=== PATIENT | male | born 1975 | race Two or more races ===

== ENCOUNTER 2018-05-22 12:49 | Emergency (ER) | payer MEDICAID, OTHER ==
[~2018-05-22] VITALS: Ht 170.2 cm; Wt 86.2 kg
[~2018-05-22 12:49] MED LIST: ADAL40KI2 SC; ALPR0.254 PO; DOCU-94 PO; GABA300C10 PO; HYDR-2601 PO; HYOS0.1250 PO; LEFL20TA PO; LORA-622 PO; MELO1TAB56 PO; MET50T PO; METH-532 PO; OMEP20CA74 PO; ONDA4TAB5 PO; PLAQUENIL PO; PROM25TA5 PO; RANI150C11 PO; SIME80CH6 PO
[2018-05-22] MEDS ORDERED: LORazepam 0.5 MG TAB PO ONE (13:00)
[2018-05-22 13:22] VITALS: BP 141/93
== END 2018-05-22 13:20 | disposition left against medical advice (07) ==
LOC: ER 12:49
DX: F41.9 Anxiety disorder, unspecified (principal); I10 Essential (primary) hypertension; K21.9 Gastro-esophageal reflux disease without esophagitis; Z53.29 Procedure and treatment not carried out because of patient's decision for other reasons
CPT/HCPCS: 71045

== ENCOUNTER 2018-10-26 17:05 | Emergency (ER) | payer MEDICAID ==
[~2018-10-26] VITALS: Ht 170.2 cm; Wt 86.2 kg
[2018-10-26 17:45] LABS: Basophils # (auto) 0 uL; Basophils % (auto) 0.5 % (0.0-2.0); Eosinophils # (auto) 0 uL; Eosinophils % (auto) 0.5 % (0.0-7.0); Hematocrit 48.3 % (41.0-53.0); Hemoglobin 16.3 g/dL (13.5-17.5); Lymphocytes % (auto) 23.7 % (10.0-50.0); Mean Corpuscular Hemoglobin 31.9 pg (28.0-32.0); Mean Corpuscular Hgb Conc. 33.8 g/dL (32.0-36.0); Mean Corpuscular Volume 94.5 fL (80.0-100.0); Monocytes # (auto) 0.4 uL; Monocytes % (auto) 4.9 % (0.0-12.0); Neutrophils # (auto) 6.1 uL; Neutrophils % (auto) 70.4 % (37.0-80.0); Nucleated Red Blood Cells % 0.1 %; Platelet Count (auto) 272 10^3/uL (140-450); Red Blood Cells 5.11 10^6/uL (4.5-5.90); Red Cell Distribution Width 13.7 % (11.8-14.3); White Blood Cell 8.6 10^3/uL (4.4-10.8)
[2018-10-26 17:53] LABS: Albumin 4.2 g/dL (3.4-5.0); Calcium 8.9 mg/dL (8.5-10.1); Potassium 3.8 mmol/L (3.5-5.1)
[2018-10-26 17:56] LABS: BUN/Creatinine Ratio 5.9; Bilirubin, Total 0.6 mg/dL (0.2-1.0); Total Protein 8.3 g/dL (6.4-8.2)
[2018-10-26 20:06] LABS: Urine Bacteria NONE SEEN /hpf (None Seen); Urine Blood Negative /uL (Negative); Urine Mucus FEW (None Seen); Urine Specific Gravity 1.017 (1.001-1.035); Urine WBC <1 /hpf (0 - 3)
[2018-10-26 20:07] LABS: Alcohol, Urine < 3.0 mg/dL (0-5); Amphetamine Screen, Urine NEGATIVE (NEGATIVE); Barbiturate Scree,Urine NEGATIVE (NEGATIVE); Benzodiazephine Screen, Urine NEGATIVE (NEGATIVE); Cannabinoid Screen, Urine POSITIVE (NEGATIVE); Cocaine Screen, Urine NEGATIVE (NEGATIVE); Opiate Scree,Urine POSITIVE (NEGATIVE); Phencyclidine Screen, Urine NEGATIVE (NEGATIVE)
[2018-10-26 22:00] VITALS: BP 128/104
[2018-10-26] MEDS ORDERED: KETOROLAC TROMETH 60MG/2ML VIAL IM ONE (22:30)
== END 2018-10-26 22:30 | disposition home or self-care (01) ==
LOC: ER 17:05
DX: K29.00 Acute gastritis without bleeding (principal); F12.10 Cannabis abuse, uncomplicated; K21.9 Gastro-esophageal reflux disease without esophagitis; I10 Essential (primary) hypertension; F41.9 Anxiety disorder, unspecified; F32.9 Major depressive disorder, single episode, unspecified; M19.90 Unspecified osteoarthritis, unspecified site; Z86.39 Personal history of other endocrine, nutritional and metabolic disease; Z88.1 Allergy status to other antibiotic agents
CPT/HCPCS: 36415; 74176; 80053; 80307; 81001; 82150; 83690; 85025; 96372; 99284; J1885

== ENCOUNTER 2019-02-23 09:34 | Emergency (ER) | payer MEDICAID ==
[~2019-02-23] VITALS: Ht 170.2 cm; Wt 86.2 kg
[2019-02-23] MEDS ORDERED: ONDANSETRON HCL 4 MG/2 ML VIAL IV ONE ×2 (11:00→14:15)
[2019-02-23] MEDS ORDERED: MORPHINE SULF INJ 2 MG/ML SYRINGE 1ML IV ONE (11:00)
[2019-02-23 11:03] LABS: Basophils # (auto) 0 uL; Basophils % (auto) 0.3 % (0.0-2.0); Eosinophils # (auto) 0 uL; Hematocrit 47.9 % (41.0-53.0); Hemoglobin 16.3 g/dL (13.5-17.5); Lymphocytes # (auto) 2.6 uL; Lymphocytes % (auto) 24.1 % (10.0-50.0); Mean Corpuscular Hemoglobin 31.4 pg (28.0-32.0); Mean Corpuscular Hgb Conc. 34.1 g/dL (32.0-36.0); Mean Corpuscular Volume 92.2 fL (80.0-100.0); Monocytes # (auto) 0.8 uL; Monocytes % (auto) 7.8 % (0.0-12.0); Neutrophils # (auto) 7.2 uL; Neutrophils % (auto) 67.8 % (37.0-80.0); Nucleated Red Blood Cells % 0.1 %; Platelet Count (auto) 353 10^3/uL (140-450); Red Blood Cells 5.19 10^6/uL (4.5-5.90); Red Cell Distribution Width 12.9 % (11.8-14.3); White Blood Cell 10.6 10^3/uL (4.4-10.8)
[2019-02-23 11:14] LABS: INR 0.91 (0.9-1.15); Partial Thromboplastin Time 23.8 sec (23.64-32.05)
[2019-02-23 11:16] LABS: Albumin 4.7 g/dL (3.4-5.0); BUN/Creatinine Ratio 10.1; Calcium 9.7 mg/dL (8.5-10.1); Potassium 3.7 mmol/L (3.5-5.1)
[2019-02-23 11:18] LABS: Bilirubin, Total 0.6 mg/dL (0.2-1.0); Total Protein 9.5 g/dL (6.4-8.2)
[2019-02-23] MEDS ORDERED: MORPHINE SULFATE 4 MG/ML SYR/VIAL IV ONE (14:15)
[2019-02-23 14:58] VITALS: BP 136/82
[2019-02-25] MEDS ORDERED: BUSP10TA90 PO (10:23)
[2019-02-25] MEDS ORDERED: PERCOT PO (10:23)
[2019-02-25] MEDS ORDERED: DICY20TA66 PO (10:23)
[2019-02-25] MEDS ORDERED: DOCU-55 PO (10:23)
[2019-02-25] MEDS ORDERED: AMIT PO (10:23)
[2019-02-25] MEDS ORDERED: LISI10TA6 PO (10:23)
[2019-02-25] MEDS ORDERED: LEVO50TA7 PO (10:23)
[2019-02-25] MEDS ORDERED: SUCR1TAB PO (10:23)
[2019-02-25] MEDS ORDERED: BREX1TAB4 PO (10:23)
[2019-02-25] MEDS ORDERED: FLUT0.05 NAS (10:23)
[2019-02-25] MEDS ORDERED: MORP-110 PO (10:23)
[2019-02-25] MEDS ORDERED: LEFL20TA PO (10:23)
[2019-02-25] MEDS ORDERED: SULF500T8 PO (10:23)
[2019-02-25] MEDS ORDERED: PAR20T PO (10:23)
[2019-02-25] MEDS ORDERED: TOFA5TAB OR (10:23)
[2019-02-25] MEDS ORDERED: BUPR100T14 PO (10:23)
[2019-02-25] MEDS ORDERED: IBUP800T24 PO (10:23)
[2019-02-25] MEDS ORDERED: DICL1GEL26 TOP (10:23)
[2019-02-26] MEDS ORDERED: PANT40T PO (12:45)
[2019-02-26] MEDS ORDERED: SUCR1TAB38 PO (12:47)
== END 2019-02-23 15:41 | disposition home or self-care (01) ==
LOC: ER 09:50
DX: R10.32 Left lower quadrant pain (principal); M19.90 Unspecified osteoarthritis, unspecified site; K21.9 Gastro-esophageal reflux disease without esophagitis; E07.9 Disorder of thyroid, unspecified; I10 Essential (primary) hypertension; F12.90 Cannabis use, unspecified, uncomplicated; Z88.1 Allergy status to other antibiotic agents; Z79.899 Other long term (current) drug therapy
CPT/HCPCS: 36415; 74176; 80053; 82150; 83605; 83690; 85025; 85610; 85730; 87040; 96374; 96375; 96376; 99284; J2270; J2405

== ENCOUNTER 2019-02-25 05:21 | Inpatient (IN) | payer MEDICAID | END 2019-02-27 14:55 | disposition home or self-care (01) | LOC: ER 05:21 → TELE-CENTR 10:17 | DX: K29.70 Gastritis, unspecified, without bleeding (principal); F32.9 Major depressive disorder, single episode, unspecified; M06.9 Rheumatoid arthritis, unspecified; K58.9 Irritable bowel syndrome, unspecified; K29.80 Duodenitis without bleeding ==

== ENCOUNTER 2023-10-18 07:50 | Emergency (ER) | payer MEDICAID ==
[~2023-10-18] VITALS: Ht 170.2 cm; Wt 67.8 kg
[~2023-10-18 07:50] MED LIST changes: -ADAL40KI2 SC; -ALPR0.254 PO; +AMIT10TA10 PO; +BREX1TAB4 PO; +BUPR-346 PO; +BUSP10TA90 PO; +DICL1GEL26 TOP; +DICY20TA PO; +DOCU-55 PO; +FLUT0.05 NAS; +GABA-1250 PO; -GABA300C10 PO; -HYDR-2601 PO; +IBUP-1456 PO; +LEVO50TA7 PO; +LISI10TA34 PO; -MELO1TAB56 PO; +MORP-110 PO; +ONDA-144 PO; -ONDA4TAB5 PO; +PANT40T PO; +PAR20T PO; +PERCOT PO; -PROM25TA5 PO; -RANI150C11 PO; -SIME80CH6 PO; +SUCR1TAB PO; +SUCR1TAB22 PO; +SULF500T57 PO; +TOFA5TAB OR
[2023-10-18 08:27] VITALS: BP 131/85; PULSE 86; RESP 18; TEMP 98.5; O2SAT 98
[2023-10-18] MEDS ORDERED: KETOROLAC TROMETH 60MG/2ML VIAL IM ONE (08:45)
[2023-10-18] MEDS ORDERED: METH-1182 PO (09:18)
[2023-10-19] MEDS ORDERED: CYCL-839 PO (18:15)
== END 2023-10-18 09:25 | disposition home or self-care (01) ==
LOC: ER 07:50
DX: S29.011A Strain of muscle and tendon of front wall of thorax, initial encounter (principal); K21.9 Gastro-esophageal reflux disease without esophagitis; I10 Essential (primary) hypertension; F12.10 Cannabis abuse, uncomplicated; Z88.1 Allergy status to other antibiotic agents; V43.52XA Car driver injured in collision with other type car in traffic accident, initial encounter; Y93.89 Activity, other specified; Y92.488 Other paved roadways as the place of occurrence of the external cause; Y99.8 Other external cause status
CPT/HCPCS: 71101; 96372; 99283; J1885

== ENCOUNTER 2023-10-19 14:58 | Emergency (ER) | payer MEDICAID ==
[~2023-10-19] VITALS: Ht 170.2 cm; Wt 67.2 kg
[~2023-10-19 14:58] MED LIST changes: +METH-1182 PO
[2023-10-19] MEDS ORDERED: KETOROLAC TROMETH 30 MG/ML 1ML VIAL IM ONE (16:45)
[2023-10-19 18:01] VITALS: BP 128/73; PULSE 80; RESP 17; TEMP 99.3; O2SAT 96
[2023-10-19] MEDS ORDERED: HYDROcodone-ACET 5/325MG TAB PO ONE (18:15)
[2023-10-19] MEDS ORDERED: CYCL-839 PO (18:15)
== END 2023-10-19 18:28 | disposition home or self-care (01) ==
LOC: ER 14:58
DX: R07.81 Pleurodynia (principal); I10 Essential (primary) hypertension; E03.9 Hypothyroidism, unspecified; E78.5 Hyperlipidemia, unspecified; K21.9 Gastro-esophageal reflux disease without esophagitis; Z79.899 Other long term (current) drug therapy; Z88.1 Allergy status to other antibiotic agents; V89.2XXA Person injured in unspecified motor-vehicle accident, traffic, initial encounter; Y93.89 Activity, other specified; Y92.410 Unspecified street and highway as the place of occurrence of the external cause; Y99.8 Other external cause status
CPT/HCPCS: 71250; 74176; 96372; 99285; J1885

== ENCOUNTER 2024-01-17 11:18 | Emergency (ER) | payer MEDICAID ==
[~2024-01-17] VITALS: Ht 170.2 cm; Wt 66.8 kg
[~2024-01-17 11:18] MED LIST changes: +AMIT-400 PO; -AMIT10TA10 PO; +CYCL-839 PO; -SUCR1TAB22 PO; +SUCR1TAB31 PO
[2024-01-17 12:28] VITALS: BP 108/74; PULSE 81; RESP 16; TEMP 97.8; O2SAT 96
[2024-01-17] MEDS: HYDROcodone-ACET 5/325MG TAB PO ONE (12:56)
[2024-01-17] MEDS: KETOROLAC TROMETH 60MG/2ML VIAL IM ONE (12:56)
== END 2024-01-17 13:02 | disposition home or self-care (01) ==
LOC: ER 11:18
DX: S22.32XA Fracture of one rib, left side, initial encounter for closed fracture (principal); K21.9 Gastro-esophageal reflux disease without esophagitis; I10 Essential (primary) hypertension; F12.10 Cannabis abuse, uncomplicated; Z88.1 Allergy status to other antibiotic agents; W18.09XA Striking against other object with subsequent fall, initial encounter; Y93.89 Activity, other specified; Y92.89 Other specified places as the place of occurrence of the external cause; Y99.8 Other external cause status
CPT/HCPCS: 71101; 96372; 99283; J1885

== ENCOUNTER 2024-03-30 08:28 | Emergency (ER) | payer MEDICAID ==
[~2024-03-30] VITALS: Ht 175.3 cm; Wt 63.4 kg
[2024-03-30 09:18] VITALS: BP 117/83; PULSE 97; RESP 17; TEMP 98; O2SAT 95
[2024-03-30] MEDS: KETOROLAC TROMETH 30 MG/ML 1ML VIAL IM ONE (10:04)
[2024-03-30] MEDS ORDERED: DICL1GEL59 EX (10:28)
== END 2024-03-30 11:04 | disposition home or self-care (01) ==
LOC: ER 08:28
DX: S29.011A Strain of muscle and tendon of front wall of thorax, initial encounter (principal); F41.9 Anxiety disorder, unspecified; M19.90 Unspecified osteoarthritis, unspecified site; F32.A Depression, unspecified; K21.9 Gastro-esophageal reflux disease without esophagitis; I10 Essential (primary) hypertension; E07.9 Disorder of thyroid, unspecified; F12.10 Cannabis abuse, uncomplicated; Z79.899 Other long term (current) drug therapy; Z88.1 Allergy status to other antibiotic agents; Z88.8 Allergy status to other drugs, medicaments and biological substances; X58.XXXA Exposure to other specified factors, initial encounter; Y93.89 Activity, other specified; Y92.89 Other specified places as the place of occurrence of the external cause; Y99.8 Other external cause status
CPT/HCPCS: 71046; 96372; 99283; J1885

== ENCOUNTER 2025-04-07 18:28 | Emergency (ER) | payer MEDICAID ==
[~2025-04-07] VITALS: Ht 170.2 cm; Wt 67.1 kg
[~2025-04-07 18:28] MED LIST changes: +DICL1GEL59 EX
[2025-04-07] MEDS ORDERED: LIDOCAINE HCL 1 % PF INJ 2ML AMP IJ ONE (19:00)
--- NOTE | 2025-04-07 19:21 | ED.PDOC ---
Back pain HPI HPI Comments 49y M who presents to the ED for chief complaint of upper and point specific back pain. Pt states he has history of chronic back pain from history of rheumatoid arthritis. Pt states has been taking prescribed pain medications and states they have not been helping. 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 Pt states he came to the ED, now as he would like pain shot in his upper back to help control his symptoms. Pt otherwise denies any other symptoms. Chief Complaint: Back Pain Time Seen by MD: 18:45 Primary Care Provider: NAILA Reviewed Notes: Nurses Notes, Medications, Allergies Allergies: Coded Allergies: Clindamycin (Verified Allergy, Unknown, 01/31/16) Cortisone (Verified Allergy, Unknown, 03/30/24) Home Meds Active Scripts Diclofenac Sodium (Topical) (Voltaren Arthritis Pain) 1 % Gel, 1-2 GRAMS EX QIDPRN for 10 Days, #60 GRAMS 0 Refills Prov:PAMELLA HACKETT WATER SOFTENER SERVICER AND INSTALLER 03/30/24 Cyclobenzaprine Hcl (Cyclobenzaprine Hcl) 10 Mg Tab, 10 MG PO TID, #30 TAB Prov:ALVAREZ CASTRO PAC 10/19/23 Methocarbamol (Methocarbamol) 750 Mg Tab, 750 MG PO BID, #20 TAB Prov:OUMAR JACOB PA 10/18/23 Sucralfate (CARAFATE) 1 Gm Tab, 1 GM PO QIDACHS, #120 TAB Prov:REBECCA TATUM MD 02/26/19 Pantoprazole Sodium Sesquihydr (Pantoprazole Sodium) 40 Mg Tab, 40 MG PO BID, #60 TAB Prov:REBECCA TATUM MD 02/26/19 Hyoscyamine Sulfate (Levsin) 0.125 Mg Tab, 0.25 MG PO Q4HP PRN, #30 TAB Prov:MILI CASTRO MD 03/14/16 Reported Medications Levothyroxine Sodium (Levothyroxine Sodium) 50 Mcg Tab, 50 MCG PO QAM for 30 Days, MCG 02/25/19 Leflunomide (Arava) 20 Mg Tab, 1 TAB PO DAILY, #30 TAB 02/25/19 Ibuprofen (Ibuprofen) 800 Mg Tab, 800 MG PO TID, MG 02/25/19 Fluticasone Propionate (Fluticasone Propionate) 0.05 % Cre, 50 MCG RACHAEL BID for 30 Days, MCG 02/25/19 Docusate Sodium (Docusil) 100 Mg Cap, 100 MG PO BID, CAP 02/25/19 Dicyclomine Hcl (Dicyclomine Hcl) 20 Mg Tab, 20 MG PO BID for 30 Days, MG 02/25/19 Diclofenac Sodium (Topical) (Voltaren) 1 % Gel, 1 GRAMS TOP BID, #100 GRAMS 2 Refills 02/25/19 Buspirone Hcl (Buspirone Hcl) 10 Mg Tab, 10 MG PO Q12HR for 30 Days, MG 02/25/19 Bupropion Hcl (Bupropion Hcl) 100 Mg Tab, 150 MG PO BID for 30 Days, MG 02/25/19 Amitriptyline Hcl (ELAVIL) 10 Mg Tb, 50 MG PO BID 02/25/19 Lisinopril (Lisinopril) 10 Mg Tab, 10 MG PO DAILY for 30 Days, MG 02/25/19 Paroxetine (PAXIL TABLET) 20 Mg Tb, 2 TAB PO DAILY, #30 TAB 5 Refills 02/25/19 Sulfasalazine (Sulfasalazine) 500 Mg Tab, 500 MG PO BID, MG 02/25/19 Sucralfate (Sucralfate) 1 Gm Tab, 1 GM PO BID, GM 02/25/19 Brexpiprazole (Rexulti) 2 Mg Tab, 2 MG PO DAILY, TAB 02/25/19 Tofacitinib Citrate (XELJANZ) 5 Mg Tab, 5 MG OR DAILY, TAB 02/25/19 Oxycodone W/ Acetaminophen (Percocet 5/325MG) 1 Tab Tb, 1 TAB PO TID, #90 TAB 02/25/19 Morphine Sulfate (Ms Contin) 30 Mg Tab, 1 TAB PO BID, #60 TAB 02/25/19 Omeprazole (PRILOSEC) 20 Mg Cap, 1 CAP PO DAILY, #90 CAP 1 Refill 03/13/16 Loratadine (Claritin) 10 Mg Tab, 1 TAB PO DAILY, #30 TAB 5 Refills 03/13/16 Metoprolol Tartrate (LOPRESSOR TABLET) 50 Mg Tb, 25 TAB PO BID, #60 TAB 5 Refills 03/13/16 Methocarbamol (Robaxin-750) 750 Mg Tab, 1 TAB PO BID, #60 TAB 03/13/16 Docusate Sodium (Colace) 100 Mg Cap, 1 CAP PO BID, #30 CAP 03/13/16 Leflunomide (Arava) 20 Mg Tab, 1 TAB PO DAILY, #30 TAB 03/13/16 Ondansetron (Zofran) 4 Mg Tab, 1 TAB PO Q6HR, #20 TAB 03/13/16 Gabapentin (Gabapentin) 300 Mg Cap, 1 CAP PO TID, #90 CAP 5 Refills 03/13/16 [Plaquenil] No Conflict Check, 200 MG PO BID 08/31/12 Information Source: Patient Mode of Arrival: Ambulatory Timing: Days Duration: Since onset Location of Back pain: (R) Upper back Severity: Moderate Prehospital treatment: None Quality: Aching, Cramping Onset: Spontaneous History of: Chronic Back Pain, Other (Rheumatoid arthritis) Past Medical History PAST MEDICAL HISTORY: Anxiety, Arthritis, Depression, GERD, HTN, Thyroid Surgical History: Denies all surgeries Family History Family History: Reviewed,noncontributory to illness, No family hx of HTN Social History Smoker: Non-Smoker Alcohol: Sober Drugs: Marijuana Lives In: Home Constitutional: denies: chills, diaphoresis, fatigue, fever, malaise, sweats, weakness, others EENTM: denies: blurred vision, double vision, ear bleeding, ear discharge, ear drainage, ear pain, ear ringing, eye pain, eye redness, hearing loss, mouth pain, mouth swelling, nasal discharge, nose bleeding, nose congestion, nose pain, photophobia, tearing, throat pain, throat swelling, voice changes, others Respiratory: denies: cough, hemoptysis, orthopnea, SOB at rest, shortness of breath, SOB with excertion, stridor, wheezing, others Cardiovascular: denies: chest pain, dizzy spells, diaphoresis, Dyspnea on exertion, edema, irregular heart beat, left arm pain, lightheadedness, palpitations, PND, syncope, others Gastrointestinal: denies: abdomen distended, abdominal pain, blood streaked bowels, constipated, diarrhea, dysphagia, difficulty swallowing, hematemesis, melena, nausea, poor appetite, poor fluid intake, rectal bleeding, rectal pain, vomiting, others Genitourinary: denies: burning, dysuria, flank pain, frequency, hematuria, incontinence, penile discharge, penile sore, pain, testicle pain, testicle swelling, urgency, others Neurological: denies: dizziness, fainting, headache, left sided numbness, left sided weakness, numbness, paresthesia, pre-existing deficit, right sided numbness, right sided weakness, seizure, speech problems, tingling, tremors, weakness, others Musculoskeletal: reports: back pain; denies: gout, joint pain, joint swelling, muscle pain, muscle stiffness, neck pain, others Integumetry: denies: bruises, change in color, change in hair/nails, dryness, laceration, lesions, lumps, rash, wounds, others Allergic/Immunocompromised: denies: Difficulty Healing, Frequent Infections, Hives, Itching, others Hematologic/Lymphatic: denies: anemia, blood clots, easy bleeding, easy bruising, swollen glands, others Endocrine: denies: excessive hunger, excessive sweating, excessive thirst, excessive urination, flushing, intolerance to cold, intolerance to heat, unexplained weight gain, unexplained weight loss, others Psychiatric: denies: anxiety, bipolar disorder, depression, hopeless, panic disorder, schizophrenia, sleepless, suicidal, others All Other Systems: Reviewed and Negative Physical Exam General Appearance: Moderate Distress (Moderate distress due to back pain concerns.), Normal HEENT: Normal ENT Inspection, Pharynx Normal, TMs Normal Neck: Full Range of Motion, Non-Tender, Normal, Normal Inspection Respiratory: Chest Non-Tender, Lungs Clear, No Accessory Muscle Use, No Respiratory Distress, Normal Breath Sounds Cardiovascular: No Edema, No JVD, No Murmur, No Gallop, Normal Peripheral Pulses, Regular Rate/Rhythm Breast Exam: Deferred Gastrointestinal: No Organomegaly, Non Tender, No Pulsatile Mass, Normal Bowel Sounds, Soft Genitalia: Deferred Pelvic: Deferred Rectal: Deferred Extremities: No calf tenderness, Normal capillary refill, Normal inspection, Normal range of motion, Non-tender, No pedal edema Musculoskeletal : Location: Right Extremity Location: Back (Patient has a relatively point specific area of concern on the medial aspect of the right scapula. No signs of trauma. Significant hypertonicity appreciated. No signs of infection.) Apperance: Normal Neurologic: Alert, No Motor Deficits, Normal Affect, Normal Mood, No Sensory Deficits Cerebellar Function: Normal Reflexes: Normal Skin: Dry, Normal Color, Warm Lymphatic: No Adenopathy Was a procedure done? Was a procedure done?: Yes Sedation Sedation?: No Other Procedure Notes 5 cc of 2% lidocaine with epinephrine was utilized for a trigger point injection of the rhomboid at the medial border aspect of the right scapula. Patient tolerated procedure well. Back Pain Differential Dx Differential Diagnosis: Musculoskeletal Pain X-Ray, Labs, Meds, VS Vital Signs Date Time Temp Pulse Resp B/P (MAP) Pulse Ox O2 Delivery O2 Flow Rate FiO2 04/07/25 18:56 98.0 77 16 118/73 (88) 97 98.0 Current Medications Medications (Trade) Dose Ordered Sig/Emilia Route Start Time Stop Time Status Last Admin Lidocaine/ Epinephrine (Lidocaine/ Epinephrine 2% Inj) 2 ml ONCE ONCE IJ 04/07/25 19:45 04/07/25 19:46 DC 04/07/25 19:37 X-Ray, Labs, Meds, VS Comment Patient was thankful for the injection and states he had good relief of symptoms quickly. Advised patient to maintain follow up with his primary care and pain management doctor for long-term pain medication needs. Time of 1ST Reevaluation: 20:27 Reevaluation 1ST: Improved Consultation: PCP, Other (Pain management) Patient Education/Counseling: Diagnosis, Treatment Family Education/Counseling: Diagnosis, Treatment, No Family Present SEPSIS Sepsis Screen Date sepsis recognized/suspect: Apr 07, 2025 Time Sepsis recognized/suspect: 1845 Recent Procedure: No On Antibiotic Therapy: No Respiratory Rate >20: No Heart Rate >90: No Temp<36 C (96.8 F) or >38.3 C: No SBP <90 or MAP <65 mmHG: No New Acute Mental Status Change: No Is the patient on CPAP, BIPAP,: No Vital Signs Date Time Temp Pulse Resp B/P (MAP) Pulse Ox O2 Delivery O2 Flow Rate FiO2 04/07/25 18:56 98.0 77 16 118/73 (88) 97 98.0 Medications Medications Dose Ordered Sig/Emilia Route Start Time Stop Time Status Last Admin Dose Admin Lidocaine/ Epinephrine 2 ml ONCE ONCE IJ 04/07/25 19:45 04/07/25 19:46 DC 04/07/25 19:37 Departure 1 Departure Time of Disposition: 20:27 Impression: Primary Impression: Musculoskeletal pain Disposition: 01 HOME / SELF CARE / HOMELESS Condition: Stable Additional Instructions: Advised patient to follow up with primary care provider and pain management as directed for long-term management of his global pain concerns. Discharged With: Self, Friend Critical Care Note Critical Care Time?: No Stability Stability form required: No Heart Score Heart Score: Heart Score Response (Comments) Value History N/A 0 EKG N/A 0 Age N/A 0 Risk Factors N/A 0 Troponin N/A 0 Total 0 I personally scribed for JACOBY ARCEO PAC ([email or web address]) on 04/07/25 at 19:21. Electronically submitted by Slick Bolton ([email or web address]). JACOBY ARCEO PAC Apr 07, 2025 19:21
[2025-04-07] MEDS: LIDOCAINE W/ EPINEPHRINE 2% INJ 20ML VIAL ONE ×2 (19:35→19:36)
[2025-04-07] MEDS: LIDOCAINE W/ EPINEPHRINE 2% INJ 20ML VIAL IJ ONE (19:37)
[2025-04-07 20:34] VITALS: BP 115/71; PULSE 82; RESP 16; TEMP 98.4; O2SAT 95
== END 2025-04-07 20:40 | disposition home or self-care (01) ==
LOC: ER 18:28
DX: M79.18 Myalgia, other site (principal); I10 Essential (primary) hypertension; F32.A Depression, unspecified; F41.9 Anxiety disorder, unspecified; M06.9 Rheumatoid arthritis, unspecified; Z79.622 Long term (current) use of Janus kinase inhibitor; Z79.69 Long term (current) use of other immunomodulators and immunosuppressants; Z79.899 Other long term (current) drug therapy; Z88.1 Allergy status to other antibiotic agents; Z88.8 Allergy status to other drugs, medicaments and biological substances
CPT/HCPCS: 20552

== ENCOUNTER 2025-05-28 10:49 | Emergency (ER) | payer MEDICAID ==
[~2025-05-28] VITALS: Ht 170.2 cm; Wt 66.3 kg
[2025-05-28 10:50] VITALS: TEMP 98.2
--- NOTE | 2025-05-28 12:57 | ED.PDOC ---
Musculoskeletal HPI Comments 49 y.o male with PMHx of rheumatid arthritis, presents to the ED for a chief complaint of pain to the left 4th finger s/p trauma. Patient reports accidently slamming the morton of his vehicle onto his finger 2 days ago. Patient reports pain radiates up to his mid forearm and states he is unable to bend the finger tip portion. Patient denies any numbness, tingling sensation, deformity, open wounds, or discoloration to the finger. Chief Complaint: Upper Extremity Time Seen by MD: 12:46 Primary Care Provider: NAILA Reviewed Notes: Nurses Notes, Medications, Allergies Allergies: Coded Allergies: Clindamycin (Verified Allergy, Unknown, 01/31/16) Cortisone (Verified Allergy, Unknown, 03/30/24) Home Meds Active Scripts Diclofenac Sodium (Topical) (Voltaren Arthritis Pain) 1 % Gel, 1-2 GRAMS EX QIDPRN for 10 Days, #60 GRAMS 0 Refills Prov:PAMELLA HACKETT TRANSPORTATION PROGRAM DIRECTOR 03/30/24 Cyclobenzaprine Hcl (Cyclobenzaprine Hcl) 10 Mg Tab, 10 MG PO TID, #30 TAB Prov:ALVAREZ CASTRO PAC 10/19/23 Methocarbamol (Methocarbamol) 750 Mg Tab, 750 MG PO BID, #20 TAB Prov:OUMAR JACOB PA 10/18/23 Sucralfate (CARAFATE) 1 Gm Tab, 1 GM PO QIDACHS, #120 TAB Prov:REBECCA TATUM MD 02/26/19 Pantoprazole Sodium Sesquihydr (Pantoprazole Sodium) 40 Mg Tab, 40 MG PO BID, #6 0 TAB Prov:REBECCA TATUM MD 02/26/19 Hyoscyamine Sulfate (Levsin) 0.125 Mg Tab, 0.25 MG PO Q4HP PRN, #30 TAB Prov:MILI CASTRO MD 03/14/16 Reported Medications Levothyroxine Sodium (Levothyroxine Sodium) 50 Mcg Tab, 50 MCG PO QAM for 30 Days, MCG 02/25/19 Leflunomide (Arava) 20 Mg Tab, 1 TAB PO DAILY, #30 TAB 02/25/19 Ibuprofen (Ibuprofen) 800 Mg Tab, 800 MG PO TID, MG 02/25/19 Fluticasone Propionate (Fluticasone Propionate) 0.05 % Cre, 50 MCG RACHAEL BID for 30 Days, MCG 02/25/19 Docusate Sodium (Docusil) 100 Mg Cap, 100 MG PO BID, CAP 02/25/19 Dicyclomine Hcl (Dicyclomine Hcl) 20 Mg Tab, 20 MG PO BID for 30 Days, MG 02/25/19 Diclofenac Sodium (Topical) (Voltaren) 1 % Gel, 1 GRAMS TOP BID, #100 GRAMS 2 Refills 02/25/19 Buspirone Hcl (Buspirone Hcl) 10 Mg Tab, 10 MG PO Q12HR for 30 Days, MG 02/25/19 Bupropion Hcl (Bupropion Hcl) 100 Mg Tab, 150 MG PO BID for 30 Days, MG 02/25/19 Amitriptyline Hcl (ELAVIL) 10 Mg Tb, 50 MG PO BID 02/25/19 Lisinopril (Lisinopril) 10 Mg Tab, 10 MG PO DAILY for 30 Days, MG 02/25/19 Paroxetine (PAXIL TABLET) 20 Mg Tb, 2 TAB PO DAILY, #30 TAB 5 Refills 02/25/19 Sulfasalazine (Sulfasalazine) 500 Mg Tab, 500 MG PO BID, MG 02/25/19 Sucralfate (Sucralfate) 1 Gm Tab, 1 GM PO BID, GM 02/25/19 Brexpiprazole (Rexulti) 2 Mg Tab, 2 MG PO DAILY, TAB 02/25/19 Tofacitinib Citrate (XELJANZ) 5 Mg Tab, 5 MG OR DAILY, TAB 02/25/19 Oxycodone W/ Acetaminophen (Percocet 5/325MG) 1 Tab Tb, 1 TAB PO TID, #90 TAB 02/25/19 Morphine Sulfate (Ms Contin) 30 Mg Tab, 1 TAB PO BID, #60 TAB 02/25/19 Omeprazole (PRILOSEC) 20 Mg Cap, 1 CAP PO DAILY, #90 CAP 1 Refill 03/13/16 Loratadine (Claritin) 10 Mg Tab, 1 TAB PO DAILY, #30 TAB 5 Refills 03/13/16 Metoprolol Tartrate (LOPRESSOR TABLET) 50 Mg Tb, 25 TAB PO BID, #60 TAB 5 Refills 03/13/16 Methocarbamol (Robaxin-750) 750 Mg Tab, 1 TAB PO BID, #60 TAB 03/13/16 Docusate Sodium (Colace) 100 Mg Cap, 1 CAP PO BID, #30 CAP 03/13/16 Leflunomide (Arava) 20 Mg Tab, 1 TAB PO DAILY, #30 TAB 03/13/16 Ondansetron (Zofran) 4 Mg Tab, 1 TAB PO Q6HR, #20 TAB 03/13/16 Gabapentin (Gabapentin) 300 Mg Cap, 1 CAP PO TID, #90 CAP 5 Refills 03/13/16 [Plaquenil] No Conflict Check, 200 MG PO BID 08/31/12 Information Source: Patient Mode of Arrival: Ambulatory Location: Left Extremity Location: Finger 4 Timing: Days (2) Severity: Moderate Able to Move Extremity: Yes Bear Weight: Limited Pain: Moderate Circumstances: Accident Onset of Symptoms: After Trauma Symptoms: Pain DVT Risk Factors: NONE Associated signs and symptoms: Other Past Medical History PAST MEDICAL HISTORY: Anxiety, Arthritis, Depression, GERD, HTN, Thyroid Surgical History: Hernia Repair (4) Surgical History (Other): rigth knee replacement Family History Family History: Reviewed,noncontributory to illness, No family hx of HTN Social History Smoker: Non-Smoker Alcohol: Sober Drugs: Marijuana Lives In: Home Constitutional: denies: chills, diaphoresis, fatigue, fever, malaise, sweats, weakness, others EENTM: denies: blurred vision, double vision, ear bleeding, ear discharge, ear drainage, ear pain, ear ringing, eye pain, eye redness, hearing loss, mouth pain, mouth swelling, nasal discharge, nose bleeding, nose congestion, nose pain, photophobia, tearing, throat pain, throat swelling, voice changes, others Respiratory: denies: cough, hemoptysis, orthopnea, SOB at rest, shortness of breath, SOB with excertion, stridor, wheezing, others Cardiovascular: denies: chest pain, dizzy spells, diaphoresis, Dyspnea on exertion, edema, irregular heart beat, left arm pain, lightheadedness, palpitations, PND, syncope, others Gastrointestinal: denies: abdomen distended, abdominal pain, blood streaked bowels, constipated, diarrhea, dysphagia, difficulty swallowing, hematemesis, melena, nausea, poor appetite, poor fluid intake, rectal bleeding, rectal pain, vomiting, others Genitourinary: denies: burning, dysuria, flank pain, frequency, hematuria, incontinence, penile discharge, penile sore, pain, testicle pain, testicle swelling, urgency, others Neurological: denies: dizziness, fainting, headache, left sided numbness, left sided weakness, numbness, paresthesia, pre-existing deficit, right sided numbness, right sided weakness, seizure, speech problems, tingling, tremors, weakness, others Musculoskeletal: reports: others (left fourth digit pain ); denies: back pain, gout, joint pain, joint swelling, muscle pain, muscle stiffness, neck pain Integumetry: denies: bruises, change in color, change in hair/nails, dryness, laceration, lesions, lumps, rash, wounds, others Allergic/Immunocompromised: denies: Difficulty Healing, Frequent Infections, Hives, Itching, others Hematologic/Lymphatic: denies: anemia, blood clots, easy bleeding, easy bruising, swollen glands, others Endocrine: denies: excessive hunger, excessive sweating, excessive thirst, excessive urination, flushing, intolerance to cold, intolerance to heat, unexplained weight gain, unexplained weight loss, others Psychiatric: denies: anxiety, bipolar disorder, depression, hopeless, panic disorder, schizophrenia, sleepless, suicidal, others All Other Systems: Reviewed and Negative Physical Exam General Appearance: Moderate Distress HEENT: Normal ENT Inspection, Pharynx Normal, TMs Normal Neck: Full Range of Motion, Non-Tender, Normal, Normal Inspection Respiratory: Chest Non-Tender, Lungs Clear, No Accessory Muscle Use, No Respiratory Distress, Normal Breath Sounds Cardiovascular: No Edema, No JVD, No Murmur, No Gallop, Normal Peripheral Pulses, Regular Rate/Rhythm Breast Exam: Deferred Gastrointestinal: No Organomegaly, Non Tender, No Pulsatile Mass, Normal Bowel Sounds, Soft Genitalia: Deferred Pelvic: Deferred Rectal: Deferred Extremities: No calf tenderness, Normal capillary refill, Normal inspection, Normal range of motion, Non-tender, No pedal edema Musculoskeletal : Location: Left Extremity Location: Finger 4 Apperance: Swelling, Limited ROM, Tenderness: Moderate Neurologic: Alert, food and beverage controller II-XII nml as Tested, No Motor Deficits, Normal Affect, Normal Mood, No Sensory Deficits Cerebellar Function: Normal Reflexes: Normal Skin: Dry, Normal Color, Warm Peripheral Pulses: 1+ carotid (R), 1+ carotid (L) Lymphatic: No Adenopathy Was a procedure done? Was a procedure done?: No Differential Diagnosis EXT Differential Diagnosis: Fracture, Sprain, Strain, Arthritis X-Ray, Labs, Meds, VS Vital Signs Date Time Temp Pulse Resp B/P (MAP) Pulse Ox O2 Delivery O2 Flow Rate FiO2 05/28/25 10:50 98.2 90 18 120/79 96 98.2 EXAM: XY L 4TH FINGER XRAY CLINICAL INDICATION: crush by hammer TECHNIQUE: XY L 4TH FINGER XRAY Comparison: None FINDINGS/IMPRESSION: There is no evidence of acute fracture or dislocation. The visualized joint space is well maintained. The alignment is anatomical. There is no radiopaque foreign body. X-Ray, Labs, Meds, VS Comment Patient came to the [facility] after he hit his left hand with a hammer he has a swollen and very painful left 4th finger The x-ray is negative for fracture Patient will be discharged home to follow up with his PCP Time of 1ST Reevaluation: 12:53 Reevaluation 1ST: Unchanged Patient Education/Counseling: Diagnosis, Treatment, Prognosis Family Education/Counseling: No Family Present Departure 1 Departure Time of Disposition: 14:39 Impression: Primary Impression: Contusion of finger without damage to nail Qualified Codes: S60.042A - Contusion of left ring finger without damage to nail, initial encounter Disposition: HOME / SELF CARE / HOMELESS Condition: Good Additional Instructions: Heat follow up with your PCP e-Prescriptions Naproxen (Naproxen) 375 Mg Tab 375 MG PO TID for 10 Days, #30 TAB Prov: BOBBI DOHERTY MD 05/28/25 Discharged With: Self Critical Care Note Critical Care Time?: No Stability Stability form required: No I personally scribed for BOBBI DOHERTY MD ([email or web address]) on 05/28/25 at 12:57. Electronically submitted by Abena Bucio ([facility]). I personally scribed for BOBBI DOHERTY MD ([email or web address]) on 05/28/25 at 14:31. Electronically submitted by Abena Bucio ([facility]). BOBBI DOHERTY MD May 28, 2025 12:57
--- NOTE | 2025-05-28 13:53 | DVH ---
EXAM: XY L 4TH FINGER XRAY CLINICAL INDICATION: crush by hammer TECHNIQUE: XY L 4TH FINGER XRAY Comparison: None FINDINGS/IMPRESSION: There is no evidence of acute fracture or dislocation. The visualized joint space is well maintained. The alignment is anatomical. There is no radiopaque foreign body.
[2025-05-28 14:38] VITALS: BP 125/75; PULSE 73; RESP 16; O2SAT 98
[2025-05-28] MEDS ORDERED: NAPR-957 PO (14:42)
[2025-05-28] MEDS: KETOROLAC TROMETH 60MG/2ML VIAL IM ONE ×2 (14:51)
== END 2025-05-28 14:56 | disposition home or self-care (01) ==
LOC: ER 10:49
DX: S60.042A Contusion of left ring finger without damage to nail, initial encounter (principal); I10 Essential (primary) hypertension; E03.9 Hypothyroidism, unspecified; F32.A Depression, unspecified; M19.90 Unspecified osteoarthritis, unspecified site; F41.9 Anxiety disorder, unspecified; Z79.899 Other long term (current) drug therapy; Z98.890 Other specified postprocedural states; Z88.8 Allergy status to other drugs, medicaments and biological substances; Z96.659 Presence of unspecified artificial knee joint; Z88.1 Allergy status to other antibiotic agents; W23.1XXA Caught, crushed, jammed, or pinched between stationary objects, initial encounter; Y93.89 Activity, other specified; Y92.89 Other specified places as the place of occurrence of the external cause; Y99.8 Other external cause status
CPT/HCPCS: 73140; 96372; 99283; J1885

== ENCOUNTER 2025-08-16 17:53 | Emergency (ER) | payer MEDICAID ==
[~2025-08-16] VITALS: Ht 170.2 cm; Wt 65.0 kg
[~2025-08-16 17:53] MED LIST changes: +NAPR-957 PO
--- NOTE | 2025-08-16 18:32 | ED.PDOC ---
History of Present Illness(SKN HPI Comments 49-year-old male presents to ER with complaints of dog bite to left 4th finger x1 hour. Patient reports that he was bit by a Filipino Reed dog on his left 4th finger 1 hour prior to arrival to ER and sustained laceration to this finger at that time. States that the line haul owner operator noted that the dog is fully up-to-date on shots and states he is unsure when his last tetanus shot was. He reports 9/10 pain localized to left 4th finger without radiation. Denies use of medications for current symptoms and presents to ER ambulatory on arrival, with steady gait, in no distress. Denies numbness/tingling and endorses no further symptoms/complaints Chief Complaint: Animal Bite Time Seen by MD: 18:10 Primary Care Provider: NAILA History of Present Illness: Nurses Notes, Medications, Allergies Allergies: Coded Allergies: Clindamycin (Verified Allergy, Unknown, 01/31/16) Cortisone (Verified Allergy, Unknown, 03/30/24) Home Meds Active Scripts Ibuprofen (Ibuprofen) 800 Mg Tab, 1 TAB PO TID PRN, #30 TAB 0 Refills Prov:LUCY SCOTT 08/16/25 Amoxicillin & Pot Clavulanate (Amoxicillin/Potassium Cla) 875 Mg Tab, 1 TAB PO BID for 7 Days, #14 TAB 0 Refills Prov:LUCY SCOTT 08/16/25 Naproxen (Naproxen) 375 Mg Tab, 375 MG PO TID for 10 Days, #30 TAB Prov:BOBBI DOHERTY MD 05/28/25 Diclofenac Sodium (Topical) (Voltaren Arthritis Pain) 1 % Gel, 1-2 GRAMS EX QIDPRN for 10 Days, #60 GRAMS 0 Refills Prov:PAMELLA [facility]T [facility] ENTRANCE ATTENDANT 03/30/24 Cyclobenzaprine Hcl (Cyclobenzaprine Hcl) 10 Mg Tab, 10 MG PO TID, #30 TAB Prov:ALVAREZ CASTRO PAC 10/19/23 Methocarbamol (Methocarbamol) 750 Mg Tab, 750 MG PO BID, #20 TAB Prov:OUMAR JACOB 10/18/23 Sucralfate (CARAFATE) 1 Gm Tab, 1 GM PO QIDACHS, #120 TAB Prov:REBECCA TATUM MD 02/26/19 Pantoprazole Sodium Sesquihydr (Pantoprazole Sodium) 40 Mg Tab, 40 MG PO BID, #60 TAB Prov:REBECCA TATUM MD 02/26/19 Hyoscyamine Sulfate (Levsin) 0.125 Mg Tab, 0.25 MG PO Q4HP PRN, #30 TAB Prov:MILI CASTRO MD 03/14/16 Reported Medications Levothyroxine Sodium (Levothyroxine Sodium) 50 Mcg Tab, 50 MCG PO QAM for 30 Days, MCG 02/25/19 Leflunomide (Arava) 20 Mg Tab, 1 TAB PO DAILY, #30 TAB 02/25/19 Ibuprofen (Ibuprofen) 800 Mg Tab, 800 MG PO TID, MG 02/25/19 Fluticasone Propionate (Fluticasone Propionate) 0.05 % Cre, 50 MCG RACHAEL BID for 30 Days, MCG 02/25/19 Docusate Sodium (Docusil) 100 Mg Cap, 100 MG PO BID, CAP 02/25/19 Dicyclomine Hcl (Dicyclomine Hcl) 20 Mg Tab, 20 MG PO BID for 30 Days, MG 02/25/19 Diclofenac Sodium (Topical) (Voltaren) 1 % Gel, 1 GRAMS TOP BID, #100 GRAMS 2 Refills 02/25/19 Buspirone Hcl (Buspirone Hcl) 10 Mg Tab, 10 MG PO Q12HR for 30 Days, MG 02/25/19 Bupropion Hcl (Bupropion Hcl) 100 Mg Tab, 150 MG PO BID for 30 Days, MG 02/25/19 Amitriptyline Hcl (ELAVIL) 10 Mg Tb, 50 MG PO BID 02/25/19 Lisinopril (Lisinopril) 10 Mg Tab, 10 MG PO DAILY for 30 Days, MG 02/25/19 Paroxetine (PAXIL TABLET) 20 Mg Tb, 2 TAB PO DAILY, #30 TAB 5 Refills 02/25/19 Sulfasalazine (Sulfasalazine) 500 Mg Tab, 500 MG PO BID, MG 02/25/19 Sucralfate (Sucralfate) 1 Gm Tab, 1 GM PO BID, GM 02/25/19 Brexpiprazole (Rexulti) 2 Mg Tab, 2 MG PO DAILY, TAB 02/25/19 Tofacitinib Citrate (XELJANZ) 5 Mg Tab, 5 MG OR DAILY, TAB 02/25/19 Oxycodone W/ Acetaminophen (Percocet 5/325MG) 1 Tab Tb, 1 TAB PO TID, #90 TAB 02/25/19 Morphine Sulfate (Ms Contin) 30 Mg Tab, 1 TAB PO BID, #60 TAB 02/25/19 Omeprazole (PRILOSEC) 20 Mg Cap, 1 CAP PO DAILY, #90 CAP 1 Refill 03/13/16 Loratadine (Claritin) 10 Mg Tab, 1 TAB PO DAILY, #30 TAB 5 Refills 03/13/16 Metoprolol Tartrate (LOPRESSOR TABLET) 50 Mg Tb, 25 TAB PO BID, #60 TAB 5 Refills 03/13/16 Methocarbamol (Robaxin-750) 750 Mg Tab, 1 TAB PO BID, #60 TAB 03/13/16 Docusate Sodium (Colace) 100 Mg Cap, 1 CAP PO BID, #30 CAP 03/13/16 Leflunomide (Arava) 20 Mg Tab, 1 TAB PO DAILY, #30 TAB 03/13/16 Ondansetron (Zofran) 4 Mg Tab, 1 TAB PO Q6HR, #20 TAB 03/13/16 Gabapentin (Gabapentin) 300 Mg Cap, 1 CAP PO TID, #90 CAP 5 Refills 03/13/16 [Plaquenil] No Conflict Check, 200 MG PO BID 08/31/12 Mode of Arrival: Ambulatory Past Medical History PAST MEDICAL HISTORY: Anxiety, Arthritis, Depression, GERD, HTN, Thyroid Surgical History: Hernia Repair Family History Family History: No family hx of HTN Social History Smoker: Non-Smoker Alcohol: Sober Drugs: Marijuana Lives In: Home Constitutional: denies: chills, diaphoresis, fatigue, fever, malaise, sweats, weakness, others EENTM: denies: blurred vision, double vision, ear bleeding, ear discharge, ear drainage, ear pain, ear ringing, eye pain, eye redness, hearing loss, mouth pain, mouth swelling, nasal discharge, nose bleeding, nose congestion, nose pain, photophobia, tearing, throat pain, throat swelling, voice changes, others Respiratory: denies: cough, hemoptysis, orthopnea, SOB at rest, shortness of breath, SOB with excertion, stridor, wheezing, others Cardiovascular: denies: chest pain, dizzy spells, diaphoresis, Dyspnea on exertion, edema, irregular heart beat, left arm pain, lightheadedness, palpitations, PND, syncope, others Gastrointestinal: denies: abdomen distended, abdominal pain, blood streaked bowels, constipated, diarrhea, dysphagia, difficulty swallowing, hematemesis, melena, nausea, poor appetite, poor fluid intake, rectal bleeding, rectal pain, vomiting, others Genitourinary: denies: burning, dysuria, flank pain, frequency, hematuria, incontinence, penile discharge, penile sore, pain, testicle pain, testicle swelling, urgency, others Neurological: denies: dizziness, fainting, headache, left sided numbness, left sided weakness, numbness, paresthesia, pre-existing deficit, right sided numbness, right sided weakness, seizure, speech problems, tingling, tremors, weakness, others Musculoskeletal: denies: back pain, gout, joint pain, joint swelling, muscle pain, muscle stiffness, neck pain, others Integumetry: reports: others (As stated in HPI) Allergic/Immunocompromised: denies: Difficulty Healing, Frequent Infections, Hives, Itching, others Hematologic/Lymphatic: denies: anemia, blood clots, easy bleeding, easy bruising, swollen glands, others Endocrine: denies: excessive hunger, excessive sweating, excessive thirst, excessive urination, flushing, intolerance to cold, intolerance to heat, unexplained weight gain, unexplained weight loss, others Psychiatric: denies: anxiety, bipolar disorder, depression, hopeless, panic disorder, schizophrenia, sleepless, suicidal, others Physical Exam General Appearance: No Apparent Distress HEENT: PERRL/EOMI Neck: Full Range of Motion, Non-Tender, Normal Respiratory: Chest Non-Tender, Lungs Clear, No Accessory Muscle Use, No Respiratory Distress, Normal Breath Sounds Cardiovascular: No Murmur, No Gallop, Regular Rate/Rhythm Breast Exam: Deferred Gastrointestinal: NOT DONE Genitalia: Deferred Pelvic: Deferred Rectal: Deferred Extremities: Normal capillary refill, Normal range of motion Neurologic: Alert, No Motor Deficits, Normal Affect, Normal Mood, No Sensory Deficits Cerebellar Function: Normal Reflexes: Normal Skin: Dry, Warm Peripheral Pulses: 2+ Radial (R), 2+ Radial (L), 2+ Brachial (R), 2+ Brachial (L) Lymphatic: No Adenopathy Was a procedure done? Was a procedure done?: Yes Sedation Sedation?: No Laceration Repair : Location Left 4th finger Length 3 cm Anesthetic: Lidocaine (1%), Without epi Laceration Repair Prep: Saline, Betadine, by Irrigation (Heavily irrigated without foreign body) Laceration Repair Wound Comple: epidermis/dermis repair Laceration Repair: Number of sutures (4 placed - loosely approximated), Size (5-0), Nylon, Simple, Non-adherent gauze Informed consent obtained: Yes Risks, benefits, and alternati: Yes Images 1 - 3 cm laceration noted. Slight TTP/swelling/erythema localized to wound edges. No FB/further skin changes noted. Patient able to fully move all fingers of left hand. Pulses intact Differential Diagnosis (INTG) Differential Diagnosis: Abrasion Differential Diagnosis: Neurovascular Injury Differential Diagnosis: Open Fracture, Puncture Wound, Retained Foreign Body X-Ray, Labs, Meds, VS Vital Signs Date Time Temp Pulse Resp B/P (MAP) Pulse Ox O2 Delivery O2 Flow Rate FiO2 08/16/25 18:02 97.9 77 16 128/88 97 97.9 Current Medications Medications (Trade) Dose Ordered Sig/Emilia Route Start Time Stop Time Status Last Admin Diphtheria/ Tetanus/Acell Pertussis (Boostrix T-Dap) 0.5 ml ONCE ONCE IM 08/16/25 18:30 08/16/25 18:31 DC 08/16/25 18:36 Ketorolac Tromethamine (Toradol Injection) 60 mg ONCE ONCE IM 08/16/25 18:30 08/16/25 18:31 DC 08/16/25 18:37 PATIENT: SUNNY ROPER,ARTUROACCT: [id number]: [id number] : 1975 LOC: ER ROOM / BED: / AGE / SEX: 49 / M ADM STATUS: REG ER SERVICE 09 ORDERING PHYSICIAN: LUCY SCOTT PROCEDURE(s): LHAN - L HAND 3V XRAY REASON: Left 4th finger pain/dog bite ORDER NUMBER(s): [id number], ACCESSION NUMBER(s): [id number] CLINICAL INDICATION: Left 4th finger pain/dog bite TECHNIQUE: 3 radiographic views of the left 4th digit were obtained. Comparison: XY R HAND 3 VIEW XRAY on DOS: 01/15/24 FINDINGS/IMPRESSION: There is no evidence of acute fracture or dislocation. The visualized joint space is well maintained. The alignment is anatomical. Soft tissue edema of the 4th digit over the proximal and middle phalanges with overlying Band-Aid. No radiopaque foreign body is visualized. ATED BY: SHEELA KLINE DO DICTATED DATE/TIME: 08/16/251854 SIGNED BY: SHEELA KLINE DO SIGNED DATE/TIME: 08/16/251854 CC: Wound cleaning performed at bedside Wound care/cleaning discussed and advised Left hand x-ray reviewed Tdap 0.5 mL IM ordered Toradol 60 mg IM Patient neurovascularly intact and reported improvement in symptoms prior to discharge Advised to follow up in 10-14 days for removal of sutures Advised to follow up with PCP in 1-2 days Patient verbalized understanding and agreeable with current plan of care Advised to return to ER immediately if symptoms worsen Images Reviewed?: Images reviewed and evaluated by me Time of 1ST Reevaluation: 18:35 Reevaluation 1ST: N/A Patient Education/Counseling: Diagnosis, Treatment, Prognosis, Need For Follow Up Family Education/Counseling: Diagnosis, Treatment, Prognosis, Need For Follow Up SEPSIS Sepsis Screen Date sepsis recognized/suspect: Aug 16, 2025 Time Sepsis recognized/suspect: 1804 Recent Procedure: No On Antibiotic Therapy: No Respiratory Rate >20: No Heart Rate >90: No Temp<36 C (96.8 F) or >38.3 C: No SBP <90 or MAP <65 mmHG: No New Acute Mental Status Change: No Is the patient on CPAP, BIPAP,: No Physician Orders L Hand 3v Xray (08/16/25 18:10) Vital Signs Date Time Temp Pulse Resp B/P (MAP) Pulse Ox O2 Delivery O2 Flow Rate FiO2 08/16/25 18:02 97.9 77 16 128/88 97 97.9 Medications Medications Dose Ordered Sig/Emilia Route Start Time Stop Time Status Last Admin Dose Admin Diphtheria/ Tetanus/Acell Pertussis 0.5 ml ONCE ONCE IM 08/16/25 18:30 08/16/25 18:31 DC 08/16/25 18:36 Ketorolac Tromethamine 60 mg ONCE ONCE IM 08/16/25 18:30 08/16/25 18:31 DC 08/16/25 18:37 Departure 1 Departure Time of Disposition: 19:01 Impression: Primary Impression: Open wound of left ring finger due to dog bite Disposition: HOME / SELF CARE / HOMELESS Condition: Other e-Prescriptions Ibuprofen (Ibuprofen) 800 Mg Tab 1 TAB PO TID PRN, #30 TAB 0 Refills Prov: LUCY SCOTT 08/16/25 Amoxicillin & Pot Clavulanate (Amoxicillin/Potassium Cla) 875 Mg Tab 1 TAB PO BID for 7 Days, #14 TAB 0 Refills Prov: LUCY SCOTT 08/16/25 Discharged With: Self Critical Care Note Critical Care Time?: No Stability Stability form required: No Heart Score Heart Score: Heart Score Response (Comments) Value History N/A 0 EKG N/A 0 Age N/A 0 Risk Factors N/A 0 Troponin N/A 0 Total 0 LUCY SCOTT Aug 16, 2025 18:32
[2025-08-16] MEDS ORDERED: AMOX875T4 PO (18:35)
[2025-08-16] MEDS ORDERED: IBUP-1456 PO (18:35)
[2025-08-16] MEDS: TETANUS-DIPTH-ACEL PERTUSSIS 0.5ML SYR Tdap IM ONE (18:36)
[2025-08-16] MEDS: KETOROLAC TROMETH 60MG/2ML VIAL IM ONE (18:37)
[2025-08-16] MEDS: LIDOCAINE 1% HCL (LOCAL ANESTH.) INJ 20ML MDV ID ONE (18:37)
--- NOTE | 2025-08-16 18:57 | DVH ---
CLINICAL INDICATION: Left 4th finger pain/dog bite TECHNIQUE: 3 radiographic views of the left 4th digit were obtained. Comparison: XY R HAND 3 VIEW XRAY on DOS: 01/15/24 FINDINGS/IMPRESSION: There is no evidence of acute fracture or dislocation. The visualized joint space is well maintained. The alignment is anatomical. Soft tissue edema of the 4th digit over the proximal and middle phalanges with overlying Band-Aid. No radiopaque foreign body is visualized.
[2025-08-16 19:03] VITALS: BP 128/78; PULSE 78; RESP 16; TEMP 98.7; O2SAT 97
== END 2025-08-16 19:05 | disposition home or self-care (01) ==
LOC: ER 17:53
DX: S61.215A Laceration without foreign body of left ring finger without damage to nail, initial encounter (principal); F41.9 Anxiety disorder, unspecified; I10 Essential (primary) hypertension; F32.A Depression, unspecified; K21.9 Gastro-esophageal reflux disease without esophagitis; Z23 Encounter for immunization; Z88.1 Allergy status to other antibiotic agents; W54.0XXA Bitten by dog, initial encounter; Y93.89 Activity, other specified; Y92.89 Other specified places as the place of occurrence of the external cause; Y99.8 Other external cause status
CPT/HCPCS: 12002; 73130; 90471; 90715; 96372; 99284; J1885; J2003